=== PATIENT | female | born 1970 | race Caucasian/White ===

== ENCOUNTER 2016-12-31 01:59 | Emergency (ER) | payer BC ==
[~2016-12-31] VITALS: Ht 154.9 cm; Wt 96.3 kg
[~2016-12-31 01:59] MED LIST: LEVO125T57 PO; MULT-506 PO; NAPR-1169 PO; OMEP20TA PO; THYROID SUPPLEMENT PO; TRIA37.5 PO; [UNRECOGNIZED DRUG - OTHER] PO
[2016-12-31 02:09] VITALS: TEMP 36.9; Ht 154.9 cm; Wt 96.3 kg
[2016-12-31 02:36] LABS: BASO % 0.4 %; BASO ABS # 0.05 K/uL (0-0.2); COMPLETE YES; EOS % 1.8 %; HEMATOCRIT 44.1 % (37-47); IG% 0.5 %; LYMPH % 21.1 %; LYMPH ABS # 2.69 K/uL (1.2-3.4); MEAN CORPUSCULAR HEMOGLOBIN 29.7 pg (25-34); MEAN CORPUSCULAR HGB CONC 33.8 g/dl (32-36); MEAN PLATELET VOLUME 9.5 fL (7.4-10.4); MONO % 7.1 %; NEUT % 69.1 %; PLATELET COUNT 330 K/uL (130-400); RED BLOOD COUNT 5.01 M/uL (4.2-5.4); WHITE BLOOD COUNT 12.74 K/uL (4.8-10.8)
[2016-12-31 02:45] LABS: PREG INTERNAL NEGATIVE QC NEG CLEAR BACKGROUND; PREG INTERNAL POSITIVE QC POS CONTROL LINE
[2016-12-31 02:46] LABS: URINE APPEARANCE TURBID (CLEAR); URINE BILIRUBIN NEG (NEG); URINE COLOR DK YELLOW; URINE EPITHELIAL CELL AUTO 20-30 /lpf (0-5); URINE NITRITE POS (NEG); URINE SPECIFIC GRAVITY 1.011 (1.000-1.030); UROBILINOGEN NEG (NEG); ZZUR CULT IF INDIC CLEAN CATCH YES
--- NOTE | 2016-12-31 02:47 | EMERGENCY ROOM VISIT NOTE ---
History First contact with patient: 02:18 Chief Complaint: URINARY SYMPTOMS Stated Complaint: PAIN IN LWR BACK AND BLADDER-UNABLE TO URINATE Nursing Triage Summary: pt c/o urinary retention, funny feeling when she is urinating, and stopping mid stream History of Present Illness The patient is a 46 year old female who presents to the Emergency Room with complaints of urinary symptoms, abdominal pain and right back pain. Patient reports that last week, she developed a tingling sensation with urination. She reports that her symptoms have progressively worsened, and she is now having difficulty urinating and feeling like she is not completely emptying her bladder. She reports that she developed pains in her lower abdomen and the right side of her back 2 days ago. She does report a history of urinary tract infections, but states that she typically drinks cranberry juice and the symptoms resolved. She reports she has a bladder sling secondary to stress urinary incontinence. She denies any fevers/chills. She denies any history of kidney stones or kidney infections. She denies any blood in her urine or abnormal vaginal discharge. She does report a few episodes of diarrhea a few days ago, but is unsure if this is related. Review of Systems A complete 10-point Review of Systems was discussed with the patient, with pertinent positives and negatives listed in the History of Present Illness. All remaining Review of Systems questions can be considered negative unless otherwise specified. Past Medical/Surgical History Medical Problems: (1) Vaginal delivery Social History Smoking Status: Never Smoker Current/Historical Medications Scheduled Ciprofloxacin Hcl (Cipro), 500 MG PO BID Levothyroxine Sodium (Levothyroxine Sodium), 1 TAB PO DAILY Multivitamin (Multivitamin), 1 TAB PO DAILY Scheduled PRN Lorazepam (Ativan), 0.5 MG PO DAILY PRN for PMS Allergies Coded Allergies: Aspirin (Verified Adverse Reaction, Mild, BRUISING, 12/31/16) Erythromycin (Verified Adverse Reaction, Mild, N/V, 12/31/16) Sulfamethoxazole w/Trimethoprim (Verified Adverse Reaction, Mild, GI SYMPTOMS, 12/31/16) N/V Thimerosal (Verified Adverse Reaction, Mild, RASH, 12/31/16) REDNESS AT INJECTION SITE Physical Exam Vital Signs Date Time Temp Pulse Resp B/P Pulse Ox O2 Delivery O2 Flow Rate FiO2 12/31/16 04:29 78 16 117/68 99 12/31/16 02:09 36.9 75 20 145/84 100 Room Air Physical Exam VITALS: Vitals are noted on the nurse's note and reviewed by myself. Vital signs stable. GENERAL: This is a 46-year-old female, in no acute distress, nondiaphoretic, well-developed well-nourished. SKIN: Capillary reflex less than 2 seconds. HEART: Regular rate and rhythm without murmurs gallops or rubs. LUNGS: Clear to auscultation bilaterally without wheezes, rales or rhonchi. ABDOMEN: Positive bowel sounds x 4. Mild suprapubic tenderness. MUSCULOSKELETAL: Moderate right CVA tenderness. NEURO: Patient was alert and oriented to person place and time. Medical Decision & Procedures Laboratory Results 12/31/16 02:20 Red Blood Count 5.01, Mean Corpuscular Volume 88.0, Mean Corpuscular Hemoglobin 29.7, Mean Corpuscular Hemoglobin Concent 33.8, Mean Platelet Volume 9.5, Neutrophils (%) (Auto) 69.1, Lymphocytes (%) (Auto) 21.1, Monocytes (%) (Auto) 7.1, Eosinophils (%) (Auto) 1.8, Basophils (%) (Auto) 0.4, Neutrophils # (Auto) 8.80, Lymphocytes # (Auto) 2.69, Monocytes # (Auto) 0.91, Eosinophils # (Auto) 0.23, Basophils # (Auto) 0.05 12/31/16 02:20 Test 12/31/16 02:20 White Blood Count 12.74 K/uL (4.8-10.8) Red Blood Count 5.01 M/uL (4.2-5.4) Hemoglobin 14.9 g/dL (12.0-16.0) Hematocrit 44.1 % (37-47) Mean Corpuscular Volume 88.0 fL (80-100) Mean Corpuscular Hemoglobin 29.7 pg (25-34) Mean Corpuscular Hemoglobin Concent 33.8 g/dl (32-36) Platelet Count 330 K/uL (130-400) Mean Platelet Volume 9.5 fL (7.4-10.4) Neutrophils (%) (Auto) 69.1 % Lymphocytes (%) (Auto) 21.1 % Monocytes (%) (Auto) 7.1 % Eosinophils (%) (Auto) 1.8 % Basophils (%) (Auto) 0.4 % Neutrophils # (Auto) 8.80 K/uL (1.4-6.5) Lymphocytes # (Auto) 2.69 K/uL (1.2-3.4) Monocytes # (Auto) 0.91 K/uL (0.11-0.59) Eosinophils # (Auto) 0.23 K/uL (0-0.5) Basophils # (Auto) 0.05 K/uL (0-0.2) RDW Standard Deviation 41.6 fL (36.4-46.3) RDW Coefficient of Variation 13.1 % (11.5-14.5) Immature Granulocyte % (Auto) 0.5 % Immature Granulocyte # (Auto) 0.06 K/uL (0.00-0.02) Urine Color DK YELLOW Urine Appearance TURBID (CLEAR) Urine pH 6.0 (4.5-7.5) Urine Specific [place] 1.011 (1.000-1.030) Urine Protein 2+ (NEG) Urine Glucose (UA) NEG (NEG) Urine Ketones NEG (NEG) Urine Occult Blood 3+ (NEG) Urine Nitrite POS (NEG) Urine Bilirubin NEG (NEG) Urine Urobilinogen NEG (NEG) Urine Leukocyte Esterase LARGE (NEG) Urine WBC (Auto) >30 /hpf (0-5) Urine RBC (Auto) >30 /hpf (0-4) Urine Hyaline Casts (Auto) 0 /lpf (0-5) Urine Epithelial Cells (Auto) 20-30 /lpf (0-5) Urine Bacteria (Auto) NEG (NEG) Urine Pathogenic Casts /lpf (0) Urine Test NEG (NEG) Anion Gap 8.0 mmol/L (3-11) Est Creatinine Clear Calc Drug Dose 96.8 ml/min Estimated GFR () 107.3 Estimated GFR (Non- 92.6 BUN/Creatinine Ratio 11.8 (10-20) Calcium Level 8.7 mg/dl (8.5-10.1) Total Bilirubin 0.4 mg/dl (0.2-1) Aspartate Amino Transf (AST/SGOT) 12 U/L (15-37) Alanine Aminotransferase (ALT/SGPT) 17 U/L (12-78) Alkaline Phosphatase 78 U/L (45-117) Total Protein 6.8 gm/dl (6.4-8.2) Albumin 3.7 gm/dl (3.4-5.0) Globulin 3.1 gm/dl (2.5-4.0) Albumin/Globulin Ratio 1.2 (0.9-2) Lipase 218 U/L (73-393) Medications Administered Medications (Trade) Dose Ordered Sig/Aditi Route Start Time Stop Time Status Last Admin Dose Admin Ceftriaxone Sodium (Rocephin Inj) 1 gm NOW STAT IV 12/31/16 03:38 12/31/16 03:40 DC 12/31/16 03:58 1 GM Ciprofloxacin (Cipro Tab) 500 mg NOW STAT PO 12/31/16 04:10 12/31/16 04:11 DC 12/31/16 04:10 500 MG Medical Decision Differential diagnosis includes UTI, pyelonephritis, kidney stone, musculoskeletal pain, cholecystitis, gastroenteritis, colitis, among others. The patient was evaluated as above. Labs were drawn and IV access was obtained. Imaging studies were performed and read by radiology as above. The patient was medicated with 1 g Rocephin. The patient was reassessed multiple times during their stay in the emergency department and remained in stable condition. The patient is a 46-year-old female who presents today complaining of urinary symptoms and right flank pain. Labs revealed mild leukocytosis and were otherwise unremarkable. Urinalysis was suggestive of infection. Urine was negative. The patient's presentation is consistent with early pyelonephritis. She is afebrile. She has an allergy to Bactrim. She was given a dose of Rocephin and will be placed on ciprofloxacin pending her urine culture results. She was instructed to follow-up with her primary care provider or return here for worsening symptoms. Based on the patient's presentation, lab results, and imaging studies, I feel the patient is stable for outpatient treatment. The patient's case was reviewed with Dr. Mercer, ED attending physician, who agreed with my assessment and treatment plan. Discharge instructions were reviewed with the patient. The patient verbalized understanding of my assessment and treatment plan and was discharged home in good condition. Impression Primary Impression: Pyelonephritis Departure Information Dispostion Home / Self-Care Condition GOOD Prescriptions Ciprofloxacin Hcl (CIPRO) 500 Mg Tab 500 MG PO BID for 10 Days, #20 TAB Prov: Ryann Kim PA-C 12/31/16 Referrals Susanna Siegel D.O. (PCP) Patient Instructions My [facility] Additional Instructions You have been treated in the Emergency Department for a Urinary Tract Infection (UTI). You have been prescribed ciprofloxacin to be taken twice daily for 10 days. This is an antibiotic. All antibiotics have the potential to cause diarrhea. Stop this medication and contact a medical provider if you were to develop any significant adverse side effects including: wheezing, shortness of breath, passing out, vomiting, or a diffuse rash. Always take antibiotics as directed and COMPLETE the ENTIRE course regardless of the improvement of your symptoms. Drink plenty of water and stay well hydrated. As with any trip to the Emergency Department, you should follow-up with your Primary Care Provider from today's visit. Return to the emergency department if your symptoms persist despite treatment plan outlined above or if the following symptoms occur: fevers, chills, worsening back pain, nausea/vomiting, or blood in your urine.
[2016-12-31 02:53] LABS: BUN/CREATININE RATIO 11.8 (10-20); CALCIUM 8.7 mg/dl (8.5-10.1); CREATININE 0.77 mg/dl (0.60-1.20); POTASSIUM 3.8 mmol/L (3.5-5.1)
[2016-12-31] MEDS ORDERED: LORA-741 PO (02:55)
[2016-12-31] MEDS ORDERED: LEVO150T9 PO (02:55)
[2016-12-31 02:56] LABS: ALB/GLOB RATIO 1.2 (0.9-2)
[2016-12-31 02:57] LABS: MANUAL MICROSCOPIC REQUIRED? NO; REVIEW REQ? YES
[2016-12-31] MEDS ORDERED: CEFTRIAXONE SOD INJ 1 GM ADDVIAL IV STA (03:38)
[2016-12-31] MEDS ORDERED: CIPROFLOXACIN 500 MG TAB PO STA (04:10)
[2016-12-31] MEDS ORDERED: CIPR-255 PO (04:11)
[2016-12-31 04:29] VITALS: BP 117/68; PULSE 78; O2SAT 99
--- NOTE | 2017-01-02 13:59 | Pharmacy Progress Note ---
ED Pharmacist Culture FollowUp Date of Service: Jan 02, 2017. Patient was sent home with a prescription for Ciprofloxacin 500mg PO BID x 10 days (for pyelonephritis), which should cover the E Coli growing from the patient's URINE culture. No action required at this time.
== END 2016-12-31 04:33 | disposition home or self-care (01) ==
LOC: C.EDB 02:01 → C.EDA 04:33
DX: N10 Acute pyelonephritis (principal)